=== PATIENT | female | born 1975 | race Caucasian/White ===

== ENCOUNTER 2020-08-12 13:17 | Emergency (ER) | payer OTHER, SELFPAY ==
--- NOTE | 2020-08-12 13:35 | ED.SKABFB ---
HPI - Skin/Abscess/Foreign Bdy General Chief complaint: Extremity Problem,Nontraumatic Stated complaint: Infected Toe Time Seen by Provider: 08/12/20 13:36 Source: patient and RN notes reviewed History of Present Illness HPI narrative: Patient is a 45-year-old female who presents the urgent care with complaints of a right infected toe. Patient states that she gave herself an at home pedicure on Friday evening and on it was very red and swollen. 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 Patient states that she has been using ibuprofen, peroxide and Neosporin. Denies of any fevers, chills, nausea, vomiting. No other acute complaints. No acute distress noted. Patient aware of the plan of care. Some parts of this dictation were generated by voice recognition software and may contain typographical and/or grammatical inaccuracies. Related Data Home Medications Medication Instructions Recorded Confirmed atorvastatin 20 mg PO DAILY 08/12/20 08/12/20 citalopram 40 mg PO DAILY 08/12/20 08/12/20 dextroamphetamine-amphetamine 30 mg PO DAILY 08/12/20 08/12/20 omeprazole 40 mg PO DAILY 08/12/20 08/12/20 sumatriptan succinate 100 mg PO .PRN 08/12/20 08/12/20 Allergies Allergy/AdvReac Type Severity Reaction Status Date / Time codeine Allergy Unknown Nausea Verified 08/12/20 13:34 Review of Systems Review of Systems: Narrative: CONSTITUTIONAL: Denies fever, chills, or sweats. EYES: Denies visual changes, redness, or discharge. ENT: Denies rhinorrhea, congestion, sore throat, or otalgia. CARDIOVASCULAR: Denies chest pain, palpitations, or edema. RESPIRATORY: Denies cough or dyspnea. GASTROINTESTINAL: Denies abdominal pain, nausea, vomiting, or diarrhea. GENITOURINARY: Denies dysuria or hematuria. SKIN: Reports of a red infected painful toe MUSCULOSKELETAL: Denies back pain, joint pain, or myalgia. NEUROLOGIC: Denies headache, numbness, or weakness. All other systems reviewed are negative, except as documented in HPI. [facility] Family History Family History (Updated 02/14/12 @ 11:11 by DOCTOR UNKNOWN) Other Cerebrovascular accident Diabetes mellitus Family history of alcoholism Family history of arthritis Family history of cardiovascular disease Hypertension Social History Social History Alcohol intake: current Comments At the time of my signature, I reviewed and agree with the nursing past medical, surgical, social, and family history. There is no relevant family history pertinent to the patient complaint. Exam Narrative: Exam Narrative: GENERAL: This is a well-nourished, well-developed patient, in no apparent distress. HEAD: normocephalic, atraumatic. EYES: PERRL. Sclera clear/white. Vision is grossly intact. EARS: External ears normal NOSE: External nose normal with no obvious nasal discharge, nares without redness, no rhinorrhea. THROAT: Mucous membranes moist NECK: Neck supple SKIN: Notable paronychia to the medial aspect of the right great toe with surrounding erythema and edema to the entire right great toe just distal of the nailbed. Paronychia is currently draining. NEURO: awake, alert, and oriented to person, place and time. There were no obvious focal neurologic abnormalities. EXTREMITIES: Positive strong right pedal pulse with capillary refill less than 2 seconds. Course Vital Signs Vital signs: Vital Signs Temperature 98.7 F 08/12/20 13:43 Pulse Rate 90 08/12/20 13:43 Respiratory Rate 16 08/12/20 13:43 Blood Pressure 150/70 H 08/12/20 13:43 Pulse Oximetry 100 08/12/20 13:43 Temperature 98.7 F 08/12/20 13:43 Pulse Rate 90 08/12/20 13:43 Respiratory Rate 16 08/12/20 13:43 Blood Pressure 150/70 H 08/12/20 13:43 Pulse Oximetry 100 08/12/20 13:43 Reviewed-patient is informed that they may have pre-hypertension or hypertension based on a blood pressure reading in the department. I recommend the p
[2020-08-12 13:43] VITALS: BP 150/70; PULSE 90; RESP 16; TEMP 37.1; O2SAT 100
== END 2020-08-12 13:59 | disposition home or self-care (01) ==
PROVIDERS: Emergency Provider Nurse Practitioner Family; PCP Internal Medicine
DX: L03.031 Cellulitis of right toe (principal); K21.9 Gastro-esophageal reflux disease without esophagitis; F90.9 Attention-deficit hyperactivity disorder, unspecified type; F41.9 Anxiety disorder, unspecified; F32.9 Major depressive disorder, single episode, unspecified
CPT/HCPCS: 99213; G0463

== ENCOUNTER 2021-01-27 11:17 | Emergency (ER) | payer OTHER, SELFPAY ==
[2021-01-27 11:26] VITALS: BP 129/86; PULSE 80; RESP 16; TEMP 36.1; O2SAT 100
--- NOTE | 2021-01-27 11:53 | ED.DENTAL ---
HPI - Dental/Oral General Chief complaint: Dental/Oral Stated complaint: Tooth Pain Time Seen by Provider: 01/27/21 11:40 Source: patient and RN notes reviewed Mode of arrival: ambulatory Limitations: no limitations History of Present Illness HPI Narrative: Patient presents today complaining of bilateral lower wisdom tooth pain since last night. States she has large cavities or fractures in both of the teeth. She has an appointment in 2 days for the dentist at 4 PM. Currently rates her pain 10/10 and has been using toothache mouthwash as well as ibuprofen. The ibuprofen has been providing some mild relief. MD Complaint: tooth pain Related Data Home Medications Medication Instructions Recorded Confirmed atorvastatin 20 mg PO DAILY 08/12/20 01/27/21 citalopram 40 mg PO DAILY 08/12/20 01/27/21 dextroamphetamine-amphetamine 30 mg PO DAILY 08/12/20 01/27/21 omeprazole 40 mg PO DAILY 08/12/20 01/27/21 sumatriptan succinate 100 mg PO .PRN 08/12/20 01/27/21 Allergies Allergy/AdvReac Type Severity Reaction Status Date / Time codeine Allergy Unknown Nausea Verified 01/27/21 11:31 Review of Systems Review of Systems: CONSTITUTIONAL: Denies body aches, fever, chills, or sweats. EYES: Denies visual changes, redness, or discharge. ENT: Denies rhinorrhea, congestion, sore throat, or otalgia.+ Tooth pain CARDIOVASCULAR: Denies chest pain, palpitations, or edema. RESPIRATORY: Denies cough or dyspnea. GASTROINTESTINAL: Denies abdominal pain, nausea, vomiting, or diarrhea. GENITOURINARY: Denies dysuria or hematuria. SKIN: Denies rash, itching, or wounds. MUSCULOSKELETAL: Denies back pain, joint pain, or myalgia. NEUROLOGIC: Denies headache, numbness, tingling, or weakness. PSYCH: Denies depression or anxiety. [facility] Family History Family History Other Cerebrovascular accident Diabetes mellitus Family history of alcoholism Family history of arthritis Family history of cardiovascular disease Hypertension Social History Social History Alcohol intake: current Comments At time of signature, I have reviewed and agree with nursing past medical, surgical, social and family history unless otherwise noted. Please see nursing chart for further information. There is no relevant family history pertinent to the presenting complaint Exam Narrative: GENERAL: Well-appearing, well-nourished, and in no acute distress. HEAD: Normocephalic, atraumatic. EYES: EOMI. No redness or drainage. Conjunctivae normal. ENT: Mucous membranes pink and moist. Tooth #32 has a large cavity in the anterior half. Tooth #17 has lateral portion missing. No facial swelling noted. NECK: Normal AROM. CHEST: No respiratory distress. EXTREMITIES: Normal range of motion. No edema. SKIN: Warm, dry, no rash. Capillary refill normal. Normal skin turgor. NEURO: No focal deficits. Alert and oriented x3. Gait steady. PSYCH: Normal affect. No signs of depression or anxiety. Course Vital Signs Vital signs: Vital Signs Temperature 97.0 F L 01/27/21 11:26 Pulse Rate 80 01/27/21 11:26 Respiratory Rate 16 01/27/21 11:26 Blood Pressure 129/86 01/27/21 11:26 Pulse Oximetry 100 01/27/21 11:26 Temperature 97.0 F L 01/27/21 11:26 Pulse Rate 80 01/27/21 11:26 Respiratory Rate 16 01/27/21 11:26 Blood Pressure 129/86 01/27/21 11:26 Pulse Oximetry 100 01/27/21 11:26 Reviewed. Pt has been instructed to follow up with her PCP regarding her elevated blood pressure today. MDM - Dental/Oral Differential Diagnosis Differential diagnosis: Likely gingival abscess, dental caries, toothache, dental abscess and fracture of tooth Critical Care Time Critical Care Time Critical Care Time: No Discharge Plan Discharge Clinical Impression: Infected dental caries Patient Disposition: Home, Self-Care Conditio
== END 2021-01-27 12:03 | disposition home or self-care (01) ==
PROVIDERS: Emergency Provider Nurse Practitioner; PCP Internal Medicine
DX: K02.9 Dental caries, unspecified (principal); E78.00 Pure hypercholesterolemia, unspecified; K21.9 Gastro-esophageal reflux disease without esophagitis; F41.9 Anxiety disorder, unspecified; F90.9 Attention-deficit hyperactivity disorder, unspecified type
CPT/HCPCS: 99213; G0463

== ENCOUNTER 2021-12-21 19:18 | Emergency (ER) | payer OTHER, SELFPAY ==
--- NOTE | 2021-12-21 19:23 | ED.URI ---
HPI - URI/Sore Throat General Chief Complaint: Upper Respiratory Infection Stated Complaint: Cough,Bilateral Ear Irritation,Congestion,Fatigue Time Seen by Provider: 12/21/21 19:30 History of Present Illness HPI Narrative: Snow Hardin is a 46 yo female with a PMH of ADD, depression, high cholesterol, GERD,migraines, who comes to express care with c/o cough, fatigue, ear irritation and congestion. Started on Friday and has tried NyQuil and TheraFlu and says neither of them help she is currently has been having some uncontrolled diarrhea which she has not take any medication for, coughing has just started today. Had COVID last December and was under the impression she could not get it again Related Data Home Medications Medication Instructions Recorded Confirmed atorvastatin 20 mg tablet 20 mg PO DAILY 08/12/20 12/21/21 citalopram 40 mg tablet 40 mg PO DAILY 08/12/20 12/21/21 dextroamphetamine-amphetamine ER 30 mg PO DAILY 08/12/20 12/21/21 30 mg 24hr capsule,extend release omeprazole 40 mg capsule,delayed 40 mg PO DAILY 08/12/20 12/21/21 release sumatriptan succinate 100 mg tablet 100 mg PO PRN PRN Migraine Headache 08/12/20 12/21/21 ibuprofen 800 mg tablet 800 mg PO TID 12/21/21 12/21/21 levothyroxine 75 mcg tablet 1 tablet PO DAILY 12/21/21 12/21/21 Allergies Allergy/AdvReac Type Severity Reaction Status Date / Time codeine AdvReac Intermediate Nausea and Verified 12/21/21 19:23 Vomiting Review of Systems Review of Systems: CONSTITUTIONAL: Denies fever, chills, sweats. Fatigue EYES: Denies visual changes, redness, discharge. ENT: Denies rhinorrhea, has congestion, sore throat, bilateral ear irritation CARDIOVASCULAR: Denies chest pain, palpitations, edema. RESPIRATORY: Denies dyspnea, wheezing, cough GASTROINTESTINAL: Denies abdominal pain, nausea, vomiting, has intermittent diarrhea. GENITOURINARY: Denies dysuria, hematuria, abnormal discharge SKIN: Denies rash or itching. NEUROLOGIC: Denies numbness, or focal weakness. PSYCHIATRIC: Denies anxiety or depression. [facility] Family History Family History Other Cerebrovascular accident Diabetes mellitus Family history of alcoholism Family history of arthritis Family history of cardiovascular disease Hypertension Social History Social History Alcohol intake: current Comments At time of signature, I agree with nursing past medical, surgical, social and family history. There is no relevant family history pertinent to the presenting complaint. Exam Narrative: GENERAL: This is a well-nourished, well-developed patient, in mild distress. HEAD: normocephalic, atraumatic. EYES: Sclera clear/white. Vision is grossly intact. EARS: External ears normal, auditory canals mild erythema and without drainage, fluid behind TMs. Hearing grossly intact. NOSE: External nose normal without has nasal discharge, nares without redness, has rhinorrhea. THROAT: Mucous membranes moist, posterior pharynx erythema with no exudate NECK: Neck supple, non-tender CARDIOVASCULAR: Regular rate and rhythm without murmurs, gallops, or rubs. RESPIRATORY: Clear to auscultation. Breath sounds equal bilaterally. No wheezes, rales, or rhonchi. GASTROINTESTINAL: Not done SKIN: warm, intact with no suspicious lesions or rash, good texture and turgor. NEURO: awake, alert, and oriented to person, place and time. There were no obvious focal neurologic abnormalities. Steady gait EXTREMITIES: Normal range of motion. BACK: Nontender without deformity Course Course Emergency Course: Patient here with fatigue congestion cough COVID- negative Strep-negative test Flu- refused Use Imodium for diarrhea, Zyrtec every morning to help with sinus drainage, Mucinex, Tessalon, Prednisone x 5 days Level of Care: Express Care Visit Vital Signs Vital signs: Vital Signs Temperature 9
[2021-12-21 19:27] VITALS: BP 120/73; PULSE 95; RESP 20; TEMP 36.6; O2SAT 100
== END 2021-12-21 20:12 | disposition home or self-care (01) ==
PROVIDERS: Emergency Provider Nurse Practitioner; PCP Internal Medicine
DX: J06.9 Acute upper respiratory infection, unspecified (principal); Z20.822 Contact with and (suspected) exposure to COVID-19; F98.8 Other specified behavioral and emotional disorders with onset usually occurring in childhood and adolescence; F32.A Depression, unspecified; E78.00 Pure hypercholesterolemia, unspecified; K21.9 Gastro-esophageal reflux disease without esophagitis
CPT/HCPCS: 87081; 87426; 87880; 99213; C9803; G0463

== ENCOUNTER 2023-03-19 09:28 | Emergency (ER) | payer OTHER, SELFPAY ==
[2023-03-19 09:38] VITALS: BP 120/65; PULSE 85; RESP 16; TEMP 36.2; O2SAT 99
--- NOTE | 2023-03-19 10:02 | ED.LOWEXIN ---
HPI - Extremity Injury (Lower) General Chief Complaint: Extremity Injury, Lower Stated Complaint: Left Foot Toe Pain Time Seen by Provider: 03/19/23 10:02 Source: patient Mode of arrival: ambulatory Limitations: no limitations History of Present Illness HPI Narrative: 48-year-old female presents with complaint pain, redness and swelling to left great toe for 2-3 days. Patient states that symptoms started 1 day after trimming toenails and becoming progressively worse. Reports history of similar infection after trimming her toenails. Patient is not diabetic. All systems reviewed and negative except as noted above. Related Data Home Medications Medication Instructions Recorded Confirmed atorvastatin 20 mg tablet 20 mg PO DAILY 08/12/20 12/21/21 citalopram 40 mg tablet 40 mg PO DAILY 08/12/20 12/21/21 omeprazole 40 mg capsule,delayed 40 mg PO DAILY 08/12/20 12/21/21 release sumatriptan succinate 100 mg tablet 100 mg PO PRN PRN Migraine Headache 08/12/20 12/21/21 ibuprofen 800 mg tablet 800 mg PO TID 12/21/21 12/21/21 levothyroxine 75 mcg tablet 1 tablet PO DAILY 12/21/21 12/21/21 phentermine 37.5 mg tablet mg 03/19/23 Allergies Allergy/AdvReac Type Severity Reaction Status Date / Time codeine AdvReac Intermediate Nausea and Verified 03/19/23 10:08 Vomiting Review of Systems Review of Systems: CONSTITUTIONAL: Denies fever, chills, or sweats. EYES: Denies visual changes, redness, or discharge. ENT: Denies rhinorrhea, congestion, sore throat, or otalgia. CARDIOVASCULAR: Denies chest pain, palpitations, or edema. RESPIRATORY: Denies cough or dyspnea. GASTROINTESTINAL: Denies abdominal pain, nausea, vomiting, or diarrhea. GENITOURINARY: Denies dysuria or hematuria. SKIN: Denies rash or itching. Reports redness, swelling drainage from left great toe. MUSCULOSKELETAL: Denies back pain, joint pain, or myalgia. NEUROLOGIC: Denies headache, numbness, or weakness. PSYCHIATRIC: Denies anxiety or depression. All other systems reviewed are negative, except as documented in HPI. [facility] Family History Family History Other Cerebrovascular accident Diabetes mellitus Family history of alcoholism Family history of arthritis Family history of cardiovascular disease Hypertension Social History Social History Alcohol intake: current Comments At time of signature, agree with nursing past medical, surgical, social and family history. There is no relevant family history pertinent to the presenting complaint. Exam Narrative: GENERAL: This is a well-nourished, well-developed patient, in no apparent distress. HEAD: normocephalic, atraumatic. EYES: PERRL. Sclera clear/white. Vision is grossly intact. EARS: External ears normal NOSE: External nose normal NECK: Neck supple, non-tender without lymphadenopathy, masses or thyromegaly. CARDIOVASCULAR: Regular rate and rhythm without murmurs, gallops, or rubs. RESPIRATORY: Clear to auscultation. Breath sounds equal bilaterally. No wheezes, rales, or rhonchi. SKIN: warm, Dry, intact with no suspicious lesions or rash, good texture and turgor. erythema and swelling to lateral aspect L cuticle extending into L great toe. tender on palpation. purulent drainage. NEURO: awake, alert, and oriented to person, place and time. There were no obvious focal neurologic abnormalities. EXTREMITIES: No joint tenderness, effusion, or edema noted. Course Course Level of Care: Express Care Visit Vital Signs Vital signs: Vital Signs Temperature 36.2 C L 03/19/23 09:38 Pulse Rate 85 03/19/23 09:38 Respiratory Rate 16 03/19/23 09:38 Blood Pressure 120/65 03/19/23 09:38 Pulse Oximetry 99 03/19/23 09:38 Oxygen Delivery Room Air 03/19/23 09:38 Temperature 36.2 C L 03/19/23 09:38 Pulse Rate 85 03/19/23 09:38 Respiratory Rate 16
== END 2023-03-19 10:16 | disposition home or self-care (01) ==
PROVIDERS: Emergency Provider Nurse Practitioner Family; PCP Nurse Practitioner Family
DX: L03.116 Cellulitis of left lower limb (principal); Z79.899 Other long term (current) drug therapy
CPT/HCPCS: 99213; G0463

== ENCOUNTER 2024-07-10 15:35 | Emergency (ER) | payer SELFPAY ==
--- NOTE | 2024-07-10 15:45 | ED_ITS ---
HPI - URI/Sore Throat General Chief Complaint: Upper Respiratory Infection Stated Complaint: cold symptoms Time Seen by Provider: 07/10/24 15:35 Source: patient Mode of arrival: ambulatory Limitations: no limitations History of Present Illness HPI Narrative: Patient is a 49-year-old female presents with 2 days of runny nose, congestion, sore throat, cough, shortness of breath on exertion, body aches. Patient has taken DayQuil and Tylenol. Denies fever, chills, nausea vomiting, diarrhea. Related Data Home Medications ?Medication ?Instructions ?Recorded ?Confirmed ?Last Taken ?Type atorvastatin 20 mg tablet 20 mg PO DAILY 08/12/20 12/21/21 Unknown History citalopram 40 mg tablet 40 mg PO DAILY 08/12/20 12/21/21 Unknown History omeprazole 40 mg capsule,delayed 40 mg PO DAILY 08/12/20 12/21/21 Unknown History release sumatriptan succinate 100 mg tablet 100 mg PO PRN PRN Migraine Headache 08/12/20 12/21/21 Unknown History ibuprofen 800 mg tablet 800 mg PO TID 12/21/21 12/21/21 Unknown History levothyroxine 75 mcg tablet 1 tablet PO DAILY 12/21/21 12/21/21 Unknown History phentermine 37.5 mg tablet mg 03/19/23 Unknown History aripiprazole 2 mg tablet mg 07/10/24 Unknown History Allergies Allergy/AdvReac Type Severity Reaction Status Date / Time codeine AdvReac Intermediate Nausea and Verified 07/10/24 15:53 Vomiting Review of Systems Review of Systems: All systems reviewed & are unremarkable except as noted in HPI and below Constitutional: Constitutional: Reports body ache(s), Denies chills, Denies fatigue, Denies fever(s), Denies headache(s), Denies malaise and Denies weakness Eyes: Eyes: Denies blurry vision, Denies itchy eyes and Denies loss of vision ENT: Denies otalgia, Denies headache(s), Reports nasal congestion, Reports nasal discharge, Denies sinus pain and Reports sore throat Cardiovascular: Cardiovascular: Denies chest pain, Denies irregular heart rhythm and Denies dyspnea Respiratory: Respiratory: Reports cough and Reports dyspnea on exertion Gastrointestinal: Gastrointestinal: Denies abdominal pain, Denies diarrhea, Denies nausea and Denies vomiting Musculoskeletal: Musculoskeletal: Denies back pain, Denies myalgias and Denies arthralgias Integumentary/Breasts: Skin/Breast: Denies pruritus and Denies rash Neurologic: Denies headache(s), Denies loss of vision and Denies weakness Psychiatric: Psychiatric: Reports no additional psychiatric complaints Endocrine: Endocrine: Denies fatigue Allergic/Immunologic: Allergic/Immunologic: Denies itchy eyes PMFSH Family History Family History Other Cerebrovascular accident Diabetes mellitus Family history of alcoholism Family history of arthritis Family history of cardiovascular disease Hypertension Social History Social History Alcohol intake: current Comments At time of signature, agree with nursing past medical, surgical, social and family history. There is no relevant family history pertinent to the presenting complaint. Exam Const: General: cooperative, healthy appearing, comfortable, no acute distress and well nourished Nutritional Appearance: well nourished Orientation/consciousness: patient oriented x3 Limitations: no limitations HENMT: Head: normal to inspection, normocephalic and atraumatic Ears: hearing grossly normal bilaterally, external ears normal, TM's normal bilaterally, EAC's normal and no periauricular adenopathy Face/Nose/Sinus: N ormal external nose present, Abnormal mucous membranes and turbinates present erythematous bilateral and diffuse, normal facial exam, sinuses nontender and face symmetric Face and sinus: normal facial exam, sinuses nontender and face symmetric Mouth: Yes Normal oral and palatal mucosa present, Yes lip normal, Yes tongue normal, Yes Normal salivary glands and ducts present, Yes oropharynx normal and Yes moist mucous membranes Teeth and gingiva: dentition normal Throat: posterior oropharynx normal, tonsils normal and uvula midline Eyes: General: appearance normal, both eyes and all related structures Alignment and Position: alignment normal and position normal Periorbital: periorbital findings normal Eyelids: eyelids normal Pupils: Equal, round and reactive pupils present Neck: Neck: normal visual inspection, full ROM, no lymphadenopathy and supple Chest: Chest palpation & inspection: normal inspection of the chest and normal palpation of entire chest wall Resp: Effort & Inspection: normal respiratory effort and able to speak in complete sentences Auscultation: clear to auscultation bilaterally, no crackles, no rales, no rhonchi and no wheezes Cardio: Rate: tachycardic Rhythm: regular rhythm Heart sounds: S1 normal heart sound present and S2 normal heart sound present GI: Inspection: normal to inspection Skin: General skin exam: normal color and no rashes or lesions noted Neuro: General: patient oriented x3 and moves all extremities Cranial nerves: Yes Equal, round and reactive pupils present Speech: normal speech Gait exam (Neuro): Normal gait present Extrem: General: normal to inspection, full ROM and no edema Psych: Appearance: grossly normal and well kempt Mental Status: mental status grossly normal Speech and movement: Normal speech and movement present Affect: normal affect Attitude: cooperative Thought process: Normal thought process present Course Course Emergency Course: Discharge instructions reviewed with patient, as well as provided in writing per nursing staff. The instructions also include specific and strict return/GO TO THE ER as well as f/u information. All questions have been answered, and the patient deny any further questions with discharge and discharge plan. Portions of this record may have been created with voice recognition software Level of Care: Express Care Visit Vital Signs Vital signs: Vital Signs Temperature 37.4 C 07/10/24 15:46 Pulse Rate 105 H 07/10/24 15:46 Respiratory Rate 18 07/10/24 15:46 Blood Pressure 148/73 H 07/10/24 15:46 Pulse Oximetry 98 07/10/24 15:46 Oxygen Delivery Room Air 07/10/24 15:46 Temperature 37.4 C 07/10/24 15:46 Pulse Rate 105 H 07/10/24 15:46 Respiratory Rate 18 07/10/24 15:46 Blood Pressure 148/73 H 07/10/24 15:46 Pulse Oximetry 98 07/10/24 15:46 Oxygen Delivery Room Air 07/10/24 15:46 Reviewed MDM - URI/Sore Throat MDM Narrative Medical decision making narrative: Pt well hydrated appearing, in no respiratory distress, hemodynamically stable. Recommend supportive care. The patient is stable at time of discharge the clinical impression was discussed and the patient was given the opportunity to ask questions, which were addressed as completely as possible given the information available at present. Anticipatory guidance and return to care precautions were discussed and the importance of primary care follow-up was stressed and encouraged. The patient voiced understanding of the plan, indications to return, and the need for follow-up. Differential diagnosis considered: Mac virus, strep pharyngitis, allergic rhinitis, upper respiratory tract infection, sinusitis, rhinosinusitis, nasopharyngitis. viral pharyngitis, otitis media, otitis externa, otitis effusion, foreign body, cerumen impaction, viral syndrome, and influenza.? Exam findings show no acute concerns or changes; patient is non-toxic appearing and is in no distress.? Patient is appropriate for outpatient treatment and follow- up.? Medical Records Attestation: I reviewed the patient's medical records. Lab Data Attestation: I reviewed the patient's lab results. Labs: Lab Results 07/10/24 07/10/24 Range/Units 16:11 16:19 POC Influenza A Ag Positive (Negative) POC Influenza B Ag Negative (Negative) POC SARS CoV-2 Ag Negative (Negative) POC Grp A Strep Screen Negative (Negative) Discharge Plan Discharge Clinical Impression: Influenza Patient Disposition: Home, Self-Care Condition: Stable Instructions: Influenza (ED) Additional Instructions: You are positive for influenza A. Use Tessalon Perles as needed for cough For pain, you may take: Tylenol 650-1000mg by mouth every 4-6 hours. Do not exceed 4000mg in 24 hours. Advil (Ibuprofen) 600 mg by mouth every 6 hours. Do not exceed 2400mg in 24 hours. 8 AM: Tylenol 11 AM: Ibuprofen 2 PM: Tylenol 5 PM: Ibuprofen 8 PM: Tylenol 11 PM: Ibuprofen 2 AM: Tylenol 5 AM: Ibuprofen Your rapid strep swab was negative today at [facility]. A throat culture will be sent to the laboratory for further testing. If the test is positive, you will receive a phone call within 48 hours and an appropriate antibiotic will be initiated at that time. Your Covid was negative Your symptoms are likely due to a viral illness, which is not treated with antibiotics. Viral symptoms can be present for up to a few weeks. -Alternate Tylenol and Motrin per package directions for fever or pain. -Antihistamine medication such as Benadryl/Zyrtec at night and Claritin/Renea during the day can help improve symptoms. -Use Flonase twice a day for 5 days then daily to help reduce the inflammation and dry up your sinuses. -You can also use Sudafed behind the pharmacy counter(12 or 24 hour). Be sure to drink plenty of water with these medications at least 8 ounces with every dose and it is important to drink 8 to 10 glasses of water per day. Water is a natural decongestant -Eat and drink things that are easy to swallow, like tea or soup, or popsicles. -Oral rinses such as: Salt water gargles and/or may use topical anesthetic (eg. Chloraseptic spray) or lozenges to relieve dryness or throat pain). -Frequent hand washing or hand cementer machine is one of the best ways to prevent spread of infection. -Using a vaporizer or humidifier at night will also help thin secretions and help with coughing up phlegm. -Follow up with primary care provider in 3-5 days if condition is not improving - For new or worsening symptoms go directly to the nearest ER Patient Language: Nepali Prescriptions: New benzonatate 100 mg capsule 100 mg PO BID PRN (Reason: cough) Qty: 14 0RF No Action levothyroxine 75 mcg tablet 1 tablet PO DAILY ibuprofen 800 mg tablet 800 mg PO TID aripiprazole 2 mg tablet atorvastatin 20 mg tablet 20 mg PO DAILY citalopram 40 mg tablet 40 mg PO DAILY sumatriptan succinate 100 mg tablet 100 mg PO PRN PRN (Reason: Migraine Headache) omeprazole 40 mg capsule,delayed release(DR/EC) 40 mg PO DAILY phentermine 37.5 mg tablet Follow-up/Referrals: JAQUELINE,YASSINE NO [Primary Care Provider] - 3 Days Stand Alone Forms: Work/School Release IP Time of Disposition: 16:37
[2024-07-10 15:46] VITALS: BP 148/73; PULSE 105; RESP 18; TEMP 37.4; O2SAT 98
[2024-07-10 16:13] LABS: EDSTREPNEGPOS1 Negative (Negative)
[2024-07-10 16:21] LABS: EDCOVIDSCREEN Negative (Negative); EDINFLUASCREEN Positive (Negative); EDINFLUBSCREEN Negative (Negative)
--- OUTSIDE RECORDS SUMMARY | 2024-07-15 09:07 | XMS_ITS | Clinical Summary ---
Author Organization [facility] Address [id number] [place] [address] [place] [address] Care Team Providers Care Solid Waste Facility Supervisor Name Role Phone Jaguar Ruby MD Unavailable [phone] Oneal Parsons Primary Care Provider [phone] Allergies Active Allergy Reactions Criticality Noted Date Comments Codeine Nausea and Vomiting,Dizziness 2014 Medications Cholecalciferol (VITAMIN D) 125 MCG (5000 UT) CapIndications:Di etary iron deficiency without anemia Take 1 capsule by mouth 2 (two) times a day. 180 capsule 3 04/13/20 21 Active magnesium oxide 250 MG tablet Take 1 tablet (250 mg total) by mouth daily. Active ORTHOTICS, DME,Indications:F oot pain, bilateral Apply 1 Device topically daily. 2 Device 11/10/19 22 Active atorvastatin (LIPITOR) 20 MG tabletIndications :Mixed hyperlipidemia take 1 tablet by mouth nightly at bedtime 30 tablet 1 03/01/20 24 Active levothyroxine (SYNTHROID) 50 MCG tabletIndications :Acquired hypothyroidism take 1 tablet by mouth once daily in the morning 90 tablet 03/19/20 24 Active fish oil (OMEGA-3 FATTY ACID) 1000 MG Cap capsule Take 1 capsule (1,000 mg total) by mouth 2 (two) times daily. Active APPLE CIDER VINEGAR OR Take 3 capsules by mouth daily. Active ARIPiprazole (ABILIFY) 2 MG tabletIndications :Moderate episode of recurrent major depressive disorder (CMS/HCC HHS/HCC) Take 1 tablet (2 mg total) by mouth daily. 90 tablet 10/22/20 24 Active citalopram (CELEXA) 40 MG tabletIndications :Moderate episode of recurrent major depressive disorder (CMS/HCC HHS/HCC) Take 1 tablet (40 mg total) by mouth daily. 90 tablet 3 04/13/20 24 Active SUMAtriptan (IMITREX) 100 MG tabletIndications :Migraine without status migrainosus, not intractable, unspecified migraine type Take 1 tablet (100 mg total) by mouth 2 (two) times daily as needed for Migraine. Take 1 tablet at onset of symptoms, may take 1 tablet 2 hours later. Max of 2 tablets in 24-hour period. 9 tablet 06/07/20 24 Active ibuprofen (MOTRIN) 800 MG tabletIndications :Backache Take 1 tablet by mouth three times daily as needed 30 tablet 06/29/19 25 Active phentermine (ADIPEX-P) 37.5 MG tabletIndications :Class 2 obesity due to excess calories without serious comorbidity with body mass index (BMI) of 36.0 to 36.9 in adult TAKE 1 TABLET BY MOUTH IN THE MORNING BEFORE BREAKFAST 30 tablet 06/29/19 25 Active phentermine (ADIPEX-P) 37.5 MG tabletIndications :Class 2 obesity due to excess calories without serious comorbidity with body mass index (BMI) of 36.0 to 36.9 in adult Take 1 tablet (37.5 mg total) by mouth every morning before breakfast. 30 tablet 04/13/20 24 025 Discontinued ibuprofen (MOTRIN) 800 MG tabletIndications :Backache Take 1 tablet by mouth three times daily as needed 30 tablet 05/28/20 24 025 Discontinued Active Problems Problem Noted Date Diagnosed Date Neuropathy 04/13/2024 Numbness and tingling of left lower extremity Bulging lumbar disc 04/13/2024 Constipation, unspecified constipation type 05/23 Hx of gallstones 06/02/2023 Green stool 06/02/2023 Lower abdominal pain 01/07/2023 Overview (01/07/2023): Added automatically from request for surgery [id number] Family hx of colon cancer 01/07/2023 Overview (01/07/2023): Added automatically from request for surgery [id number] Chronic constipation 10/16/2022 Class 1 obesity due to exces s calories without serious comorbidity with body mass index (BMI) of 32.0 to 32.9 in adult 10/16/2022 Hypothyroidism 06/07/2021 Dietary iron deficiency without anemia COVID-19 vaccination refused 01/09/2021 Mixed hyperlipidemia 03/25/2019 Vitamin D deficiency 03/08/2019 Other cervical disc degenera tion, unspecified cervical region 08/04/2018 Facet arthropathy, cervical 08/04/2018 Foraminal stenosis of cervical region 08/04/2018 Weight gain 11/02/2017 Vitamin B12 deficiency 10/30/2017 Right arm numbness 09/15/2017 Acne 07/30/2017 Depression 11/04/2016 Pain in thumb joint with movement 12/12/2015 Attention deficit disorder without hyperactivity 01/13/2015 Resolved Problems Problem Noted Date Diagnosed Date Resolved Date Screening for colon cancer 04/13/2024 1 Paronychia of great toe of right foot 10/20/2020 01/09/2021 Abscess 10/20/2020 01/09/2021 Tobacco abuse 09/22/2018 01/09/2021 Other muscle spasm 08/04/2018 9 BMI 26.0-26.9,adult 11/02/2017 01/10/20 21 Mollusca contagiosa 10/29/2017 01/10/20 21 Renal calculus, left 04/22/2017 021 Neck pain 12/31/2016 01/09/2021 Muscle spasms of neck 12/26/20162020 Thumb weakness 04/23/2016 02/24/2019 Thumb fracture 12/18/2015 02/24/2019 Encounters Date Type Department Care Team Description 05/13/2024 Telephone [facility] Family & Internal Medicine - [address] [address] Oneal Parsons FNP Medication Request from Last 3 Months Immunizations Name Administration Dates Next Due Hepatitis A (Generic) 04/30/1999 Hepatitis B (Generic: Adult) 05/09/2015 Hepatitis B Pediatric 05/09/2015 Influenza Adult (Generic) 03/23/2013 Tdap (Generic) 05/09/2015,05/09/2015 Family History Medical History Relation Comments Alcohol Abuse Brother Diabetes Cousin Alcohol Abuse Father Heart Disease Father Stroke Father Pancreatic cancer Maternal Grandfather Arthritis Maternal Grandmother Heart Disease Maternal Grandmother Hypertension Maternal Grandmother Stroke Maternal Grandmother Alcohol Abuse Maternal Uncle Aneurysm Mother Depression Mother Thyroid Disease Mother Arthritis Paternal Aunt Diabetes Paternal Aunt Arthritis Paternal Grandfather Colon Cancer Paternal Grandfather Colon Cancer Paternal Grandmother Heart Disease Paternal Grandmother Hypertension Paternal Grandmother Stroke Paternal Grandmother Depression Sister Relation Status Comments Brother Alive Cousin Father Alive Maternal Grandfather Maternal Grandmother Maternal Uncle Alive Mother Alive Paternal Aunt Alive Paternal Grandfather Paternal Grandmother Sister Alive Social History Tobacco Use Types Packs/Day Years Used Date Smoking Tobacco: Former Cigarettes 0.3 15 0 09/19/2005 - 09/19/2020 Passive Smoke Exposure: Past Smokeless Tobacco: Never Tobacco Cessation:Counseling Given: Yes Comments:former cigarette smoker, currently uses vape Alcohol Use Standard Drinks/Week Comments Not Currently 0 (1 standard drink = 0.6 oz pur e alcohol) once every 4 months AUDIT-C Answer Date Recorded Frequency of Alcohol Consumption Monthly or less 09/22/2018 Average Number of Drinks 1 or 2 019 Frequency of Binge Drinking Never 07/2018 PHQ-2 Answer Date Recorded Patient Health Questionnaire-2 Score 6 04/13/2024 Comments No Sex and Gender Information Value Date Recorded Sex Assigned at Female 09/22/2018 3:32 PM CDT Legal Sex Female 8:00 PM CDT Gender Identity Female 09/22/2018 3:32 PM CDT Sexual Orientation Straight 09/22/2018 3: 32 PM CDT Last Filed Vital Signs Vital Sign Reading Time Taken Comments Blood Pressure 135/83 04/13/2024 8:45 AM CDT Pulse 76 04/13/2024 8:45 AM CDT Temperature 36.9 ??C (98.4 ??F) 04/13/2024 8:45 AM CD T Respiratory Rate 16 04/13/2024 8:45 AM CDT Oxygen Saturation 99% 04/13/2024 8:45 AM CDT Inhaled Oxygen Concentration - - Weight 88.1 kg (194 lb 3.2 oz) 04/13/2024 8:45 A M CDT Height 157.5 cm (5' 2 ) 04/13/2024 8:45 AM CDT Body Mass Index 35.52 04/13/2024 8:45 AM CDT Plan of Treatment Health Maintenance Due Date Last Done Comments Colorectal Cancer Screening Colonoscopy (10 Years) 1975 Hepatitis B Vaccines (2 of 3 - 19+ 3-dose series) 06/06/2015 05/09/2015, 05/09/2015 Annual Physical 11/20/2023 11/19/2022 Mammogram Screening 11/27/2024 11/27/2022 COVID-19 Vaccine (1 - 2023-2 5 season) 2025 Postponed from 02/21 (Patient Refused) Influenza Adult (#1) 2025 03/23/2013 Postpon ed from 03/23/2024 (Patient Refused) PHQ-2 (Physician [place]) 04/13/2025 04/13/2024 DTaP, Tdap and Td Vaccines ( 3 - Td or Tdap) 05/09/2025 05/09/2015, 05/09/2015 Cervical Cancer Screening Pa p Smear (Age 30 to 64) Every 3 Years 11/19/2025 11/19/2022, 07/30/2017 Cervical Cancer Screening Pa p with HPV Testing (Age 30 to 64) Every 5 Years 11/20/2027 11/19/2022, 07/30/2017 Cervical Cancer Screening with HPV 11/20/2027 Hepatitis C Completed 11/05/2017, 11/05/2017 Meningococcal B Vaccine Aged Out No l onger eligible based on patient's age to complete this topic Meningococcal Vaccine Aged Out No juanjo ad eligible based on patient's age to complete this topic Pneumococcal Vaccine: Pediatrics (0 to 5 Years) and At-Risk Patients (6 to 64 Years) Aged Out No longer eligible b ased on patient's age to complete this topic RSV Immunizations Under 20 Months Aged Out No longer eligible b ased on patient's age to complete this topic Procedures Procedure Name Priority Date/Time Associated Diagnosis Comments MG SCREENING W ZABRINA ROMAN DIGI Routine 11/27/2022 11:56 AM CDT Encounter for screening mammogram for malignant neoplasm of breast HUMAN PAPILLOMAVIRUS, HIGH-RISK TYPES Routine 11/19/2022 12:00 PM CDT CYTOPATH CERV/VAG THIN LAYER Routine 11/19/2022 7:52 AM CDT HEPATITIS A,B,& C Routine 11/05/2017 7:2 3 AM CDT Other specified behavioral and emotional disorders with onset usually occurring in childhood and adolescence Major depressive disorder, single episode Contact with and (suspected) exposure to infections with a predominantly sexual mode of transmission Deficiency of other specified B group vitamins (CODE) from Last 3 Months or Most Recently Relevant to Health Maintenance Results * MG SCREENING W ZABRINA ROMAN DIGI (11/27/2022 11:56 AM CDT) Anatomical Region Laterality Modality Breast Bilateral Mammography 11/27/2022 1:48 PM CDT Narrative 11/27/2022 1:48 PM CDT EXAMINATION: Digital bilateral screening mammogram with 3-D tomosynthesis EXAM DATE/TIME: 11/27/2022 8:38 AM REASON FOR EXAM: ??screening ? COMPARISON: Baseline study. TECHNIQUE: Digital screening mammography of both breasts was performed in addition to 3-D Tomosynthesis technique. This study was read with the assistance of a computer-aided detection system. TISSUE DENSITY: There are scattered areas of fibroglandular density. FINDINGS: No suspicious masses, malignant appearing calcifications, skin thickening or other abnormalities are present. ?? =====IMPRESSION:===== No mammographic findings suggestive of malignancy ASSESSMENT: ACR BI-RADS 2 - BENIGN FINDING(S) Recommendation: 1: Routine Screening Bilateral COMMENTS: Ordered By: ONEAL PARSONS Interpreted By: Malik Perez MD, 11/27/2022 1:48 PM Oneal Parsons BAKER PIE MAMMO Final Result * HUMAN PAPILLOMAVIRUS, HIGH-RISK TYPES (11/19/2022 12:00 PM CDT) SPEC DESCRIPTION CERVICAL/END OCERVICAL 11/21/2022 8:30 AM CDT [facility] HPV DNA HIGH RISK NEGATIVE NEGATIVE 11/22/2022 1:27 PM CDT [facility] Comment:SEE CYTOLOGY REPORT 11/19/2022 12:0 0 PM CDT Oneal Parsons BAKER PIE PATHOLOGY/CYTOLOGY ORDERABLES Final Result [facility] [address] [place] [address], * Cytopath Cerv/Vag Thin Layer (11/19/2022 7:52 AM CDT) THIN PREP PAP ? [facility] ?[address] ?[place] [address] ? Department of Pathology ? Pathology Report ? CERVICAL/VAGINAL PAP SMEAR REPORT Name: DAGMAR HARDIN ? Age: 8 1975 (Age: 47) ?Location: [facility] Sex: F ?Collected Date: 11/19/2022 [facility] #: [id number] ?Date Received: 11/21/2022 Date Reported: 11/25/2022 Provider: ONEAL PARSONS BAKER PIE-C INTERPRETATION CERVICAL/ENDOCERVI NATE: ? SATISFACTORY FOR EVALUATION. ENDOCERVICAL/TRANS FORMATION ZONE COMPONENT PRESENT. ? NEGATIVE FOR INTRAEPITHELIAL LESION OR MALIGNANCY. NEGATIVE FOR HIGH RISK HPV. The FDA approved Aptima HPV assay is an in vitro nucleic acid amplification test for the qualitative detection of E6/E7 viral messenger RNA (mRNA) from 14 high-risk types of human papillomavirus (HPV) in cervical specimens. ??The high-risk HPV types detected by the assay include: 16,18,31,33,35,39, 45,51,52,56,58,59, 66, and 68. Electronically Signed Out By ANDRA Bennett (ASCP) CLINICAL HISTORY Z11.51 ?? Z12.4 SCREENING HPV AND SCREENING PAP TEST HX LEEP ThinPrep Pap Test with HR HPV testing requested. Date of Last Menstrual Period: ? 11/07/22 Menstrual Status: Regular: HEAVY CYCLE Abnormal Bleeding SPECIMEN SUBMITTED CERVICAL/ENDOCERVI NATE ?Specimen Received:1 Thin Prep Vial, Image Assisted Pap (SMD) ? Please note: The Pap smear is not a diagnostic test. ??It is a screening test. ??Negative results on combined screening (Pap test and HPV-DNA) have a high negative predictive value (99.1-100 percent) for cervical cancer. ??The pap test is not effective in detecting cervical adenocarcinoma. [facility] 11/19/2022 7:52 AM CDT 11/21/2022 7:52 AM CDT Comment:CERVICAL/ENDOCERVICA L Oneal SAEED PATHOLOGY/CYTOLOGY ORDERABLES Final Result [facility] [address] [place] [address], [place] [phone] * HEPATITIS A,B,& C (11/05/2017 7:23 AM CDT) HEPATITIS B SURFACE AG NON-REACTIVE NON-REACT TAMY 11/05/2017 10:35 PM CDT [facility] HEP B CORE TOTAL AB NON-REACTIVE NON-REACT TAMY 11/05/2017 11:05 PM CDT [facility] HEP B SURFACE AB REACTIVE 11/05/2017 10:36 PM CDT [facility] HAV IGM NON-REACTIVE NON-REACT TAMY 11/06/2017 11:40 PM CDT [facility] HEPATITIS C AB NON-REACTIVE NON-REACT TAMY 11/05/2017 11:04 PM CDT [facility] 11/05/2017 7:23 AM CDT us Oneal [facility] Final Result [facility] [address] [place] [address], [place] [phone] from Last 3 Months or Most Recently Relevant to Health Maintenance Care Teams Solid Waste Facility Supervisor Relationship Specialty Start Date End Date Oneal Pasrons FNP [address] [place] [address] PCP - General Nurse Practitioner Family 11/19/22 Jagura Ruby MD [address] [place] [address] 11/05/16
--- OUTSIDE RECORDS SUMMARY | 2024-07-15 09:07 | XMS_ITS | Continuity of Care Document ---
Author Organization [facility] Address [address] [place] [address] Phone Care Team Providers Care Envelope Patternmaker Name Role Phone Brittany Amador DO Unavailable Allergies, Adverse Reactions, Alerts Substance Reaction Status Criticality codeine Active No Information Medications Medication Instructions Dosage Effective Dates (start - stop) Status Comments omeprazole 20 mg tablet,delayed release take 1 by Oral route every day 1 - Active 30 minute before meals prochlorperazine maleate 10 mg tablet take 1 tablet by oral route 3 times every day as needed - Active famotidine 20 mg tablet take 1 by Oral route every bedtime 1 - Active Results Test Name Date and Time Measure Units Reference Range Abnormal Flag Status Comments Panel Description: SED RATE BY MODIFIED RAINEERGAlverto EN Final SED RATE BY MAURIZIO BAUTISTA 13 07:11:00 1 mm/h < OR = 20 N Final Test performed at [facility] [id number] [place] [address]Igrbb tor: NAOMIE WHITEHEAD DO,MPH Panel Description: T4, FREE Final T4, FREE 13 07:11:00 1.0 ng/dL 0.8-1.8 N Final Test performed at [facility] [id number] [facility] [place] [address]Gwukl tor: NAOMIE WHITEHEAD DO,MPH Panel Description: TSH Final TSH 13 07:11:00 2.08 mIU/L N Final Reference Rang e > or = 20 Years 0.40-4.50 Ranges First trimester 0.26-2.66 Second trimester 0.55-2.73 Third trimester 0.43-2.91Test performed at [facility] [id number] [place] [address]Oopxj tor: NAOMIE WHITEHEAD DO,MPH Panel Description: HCG, TOTAL, QL Final HCG, TOTAL, QL 13 07:11:00 NEGATIVE N Final Reference RangeNon-Pregna nt: NegativePregnan t: Positive Test performed at [facility] [id number] [place] [address]Xtaaf tor: NAOMIE WHITEHEAD DO,MPH Advance Directives Directive Yes / No Effective Date File Name Resuscitation Not Answered N/A N/A Life Support Not Answered N/A N/A Intubation Not Answered N/A N/A Antibiotics Not Answered N/A N/A IV Fluid Support Not Answered N/A N/A Tube Feed Not Answered N/A N/A Other Directive N/A N/A WARNING:The information contained in this section is historical and is provided for information only and does not constitute a legal document or any assurance that the information is still accurate. Please verify the information with the ambrosio of the legal document before using it for clinical purposes. Encounters Encounter Description Practice Location Reason(s) For Visit Diagnoses Date Provider Providers Copied on Encounter [facility], [id number], [place], [place], [id number], tel:[phone] [facility] new patient (chief complaint) Nausea Marjorie Soto. [address] [place] [address], [id number], [place]. tel:[phone] Referring Provider: Brittany Marie, [address] [place] [address], [address]. tel:[phone] Family History Family Member Type Diagnosis Age At Onset Mother Problem (finding) Alive and well Paternal grandfather Problem (finding) Family history unknown Paternal grandmother Problem (finding) Unknown Father Problem (finding) stroke Maternal grandfather Problem (finding) Family history unknown Father Problem (finding) alcoholism Maternal grandmother Problem (finding) Unknown Brother Problem (finding) alcoholism Sister Problem (finding) depression Immunizations Vaccine Date Status Comments flu (split) (3 yrs or older) administered Source: Other Provider Payers Payer name Insurance type Covered republican ID Gretchen saenz(s) [place] [employer] CI [id number] Social History Type Description Quantity Date Captured Comments Alcohol Use Details beer & wine Caffeine Use Details No Tobacco Use Status Smoking Status Current some day smoker Smoking Tobacco Use Details Cigarette: No Details Available Cigarette: No Details Available Sex Female Vital Signs Date / Time: Height Weight BMI Pulse Rate Blood Pressure Temperature Respiratory Rate Body Surface Area Head Circumference Head Circ. Percentile Wt./Sumanth. Percentile BMI percentile Pulse Ox Inhaled Ox 10:44 AM 61.50 in 57.153 kg (126.00 lbs) 23.4 2 kg/m eter (2) 75 /min 100/80 mm[Hg] 97.80 F 100 % 100 % Chief Complaint And Reason For Visit From encounter dated '05/06/2013 10:40'. new patient (chief complaint) Reason For Referral Reason For Referral No Information History Of Present Illness Encounter Date Complaint History Of Prese nt Illness new patient new patient (comments) Pt is her e as a new patient/er follow up. she has IPA but has never bothered to find a PCP. she is here for her one follow up. She went tot he ER with belly pain, belching, dizziness and feeling she was going to pass out. she states this has been going on since November 2012. she states it has been getting progressively worse. she feels nauseous and not hungry. she feels she is overproducing saliva. her diet is healthy. 2 weeks ago she started taking a dietary supplement that had alot of caffeine. she states she feels no worse since starting the dietary supplement. she states that she has lost weight in the past few weeks but that was intentional because she is taking the diet supplement. she is under alot of stress because her son has severe OCD and ADD. she drives him to see a therapist in [place] every week. she feels overwhelmed. in the er she had labs, ct scan, ua, ultrasound and they were all normal. urine test and thyroid were not evaluated. she has been on a H2 sunshine in Functional Status Date Functional Assessmen t No Information Instructions Date Instruction Additional Infor savanah Disease process Assessments Type Assessment Date No Information Mental Status Date Cognitive Assessment Orientation - [place] ed to time, place, person, situation. Patient Care Teams Name Effective Dates (start - stop) Status Members No Information
--- OUTSIDE RECORDS SUMMARY | 2024-07-15 09:07 | XMS_ITS | Encounter Summary ---
Author Organization [facility] Address [address] [place] [address]. [place] [address] [place] [address] Care Team Providers Care Film Booker Name Role Phone Jaguar Ruby MD Primary Care Provider [phone] Jaguar Ruby MD Unavailable [phone] Jeny Gonzalez Primary Care Provider [phone] Encounter Details Date Type Department Care Team (Late st Contact Info) Description 02/21/2022 alooma Message Enc [facility] Orthopedic & Sports Medicine - [place] [id number] [place], [facility] Provider MRI results Social History Tobacco Use Types Packs/Day Years Used Date Smoking Tobacco: Former Cigarettes 0.3 15 0 09/19/2005 - 09/19/2020 Smokeless Tobacco: Never Comments:former cigarette sm oker, currently uses vape Alcohol Use Standard Drinks/Week Comments Not Currently 0 (1 standard drink = 0.6 oz pur e alcohol) once every 4 months AUDIT-C Answer Date Recorded Frequency of Alcohol Consumption Monthly or less 09/22/2018 Average Number of Drinks 1 or 2 019 Frequency of Binge Drinking Never 07/2018 PHQ-2 Answer Date Recorded PHQ-2 Score - If the patient scores above 3, please move on to questions 3-9 0 12/27/2021 Comments No Sex and Gender Information Value Date Recorded Sex Assigned at Female 09/22/2018 3:32 PM CDT Legal Sex Female 8:00 PM CDT Gender Identity Female 09/22/2018 3:32 PM CDT Sexual Orientation Straight 09/22/2018 3: 32 PM CDT documented as of this encounter Plan of Treatment Not on file documented as of this encounter Visit Diagnoses Not on filedocumented in this encounter Additional Health Concerns Assessment Noted Time PHQ-9 Depression Total Score: 24 022 12:28 PM CDT documented as of this encounter Care Teams Film Booker Relationship Specialty Start Date End Date Jaguar Ruby MD [address] [place] [address] PCP - General 11/05/16 11/18/22 Jeny Gonzalez FNP [address] [place] [address] PCP - General Nurse Practitioner Family 11/19/22 Jaguar Ruby MD [address] [place] [address] 11/05/16 documented as of this encounter
== END 2024-07-10 16:40 | disposition home or self-care (01) ==
PROVIDERS: Emergency Provider Nurse Practitioner Family; PCP Nurse Practitioner Family
DX: J10.1 Influenza due to other identified influenza virus with other respiratory manifestations (principal); Z20.822 Contact with and (suspected) exposure to COVID-19; E78.00 Pure hypercholesterolemia, unspecified; K21.9 Gastro-esophageal reflux disease without esophagitis; E03.9 Hypothyroidism, unspecified; F41.9 Anxiety disorder, unspecified; F32.A Depression, unspecified; Z86.73 Personal history of transient ischemic attack (TIA), and cerebral infarction without residual deficits; Z86.16 Personal history of COVID-19
CPT/HCPCS: 87081; 87426; 87804; 87880; 99213; G0463

== ENCOUNTER 2024-07-24 16:26 | Emergency (ER) | payer SELFPAY ==
[2024-07-24 17:22] VITALS: BP 123/6; PULSE 77; RESP 18; TEMP 36.6; O2SAT 100
--- NOTE | 2024-07-24 17:27 | ED_ITS ---
HPI - Dental/Oral General Chief complaint: Dental/Oral Stated complaint: Dental Pain Time Seen by Provider: 07/24/24 17:27 Source: patient Mode of arrival: ambulatory History of Present Illness HPI Narrative: 49 old female presented for complaint left upper dental pain. Onset yesterday morning. She has taken 800 mg of ibuprofen several times today and used orajel rinse. States she feels the gums are swollen. Does not have a dentist. MD Complaint: tooth pain Related Data Home Medications ?Medication ?Instructions ?Recorded ?Confirmed ?Last Taken ?Type atorvastatin 20 mg tablet 20 mg PO DAILY 08/12/20 12/21/21 Unknown History citalopram 40 mg tablet 40 mg PO DAILY 08/12/20 12/21/21 Unknown History omeprazole 40 mg capsule,delayed 40 mg PO DAILY 08/12/20 12/21/21 Unknown History release sumatriptan succinate 100 mg tablet 100 mg PO PRN PRN Migraine Headache 08/12/20 12/21/21 Unknown History ibuprofen 800 mg tablet 800 mg PO TID 12/21/21 12/21/21 Unknown History levothyroxine 75 mcg tablet 1 tablet PO DAILY 12/21/21 12/21/21 Unknown History phentermine 37.5 mg tablet mg 03/19/23 Unknown History aripiprazole 2 mg tablet mg 07/10/24 Unknown History Allergies Allergy/AdvReac Type Severity Reaction Status Date / Time codeine AdvReac Intermediate Nausea and Verified 07/24/24 17:18 Vomiting Review of Systems Review of Systems: CONSTITUTIONAL: Denies body aches, fever, chills ENT: Denies rhinorrhea, congestion, sore throat, or otalgia. Reports dental pain CARDIOVASCULAR: Denies chest pain, palpitations RESPIRATORY: Denies cough or dyspnea. SKIN: Denies rash, itching, or wounds. MUSCULOSKELETAL: Denies myalgia. NEUROLOGIC: Denies headache, numbness, tingling, or weakness. [facility] Family History Family History Other Cerebrovascular accident Diabetes mellitus Family history of alcoholism Family history of arthritis Family history of cardiovascular disease Hypertension Social History Social History Alcohol intake: current Comments At time of signature, I have reviewed and agree with nursing past medical, surgical, social and family history unless otherwise noted. Please see nursing chart for further information. There is no relevant family history pertinent to the presenting complaint Exam Narrative: GENERAL: Appears in pain; no acute distress. HEAD: Normocephalic, atraumatic. EYES: EOMI. No redness or drainage. Conjunctivae normal. ENT: Dental pain location of #14,15 area. Minimal gum swelling or erythema. Tender with palpation. No drainage. Tooth is intact. Mucous membranes pink and moist. TMs normal bilaterally. Throat normal. no dysphagia, odynophagia, dysphonia, or dyspnea. No uvular deviation or soft palate edema. NECK: Normal AROM. No lymphadenopathy. no induration below mandible, no neck pain. SKIN: Warm, dry, no rash. Normal skin turgor. NEURO: No focal deficits. Alert and oriented x3. Gait steady. Course Course Emergency Course: Patient is aware of diagnosis, understands and agrees to treatment plan. Anticipatory guidance given. Patient agrees to follow-up as directed and is aware of reasons to seek care at the emergency department. Portions of this record may have been created with voice recognition software Level of Care: Express Care Visit Vital Signs Vital signs: Vital Signs Temperature 98 F 07/24/24 17:22 Pulse Rate 77 07/24/24 17:22 Respiratory Rate 18 07/24/24 17:22 Blood Pressure 123/6 L 07/24/24 17:22 Pulse Oximetry 100 07/24/24 17:22 Oxygen Delivery Room Air 07/24/24 17:22 Temperature 98 F 07/24/24 17:22 Pulse Rate 77 07/24/24 17:22 Respiratory Rate 18 07/24/24 17:22 Blood Pressure 123/6 L 07/24/24 17:22 Pulse Oximetry 100 07/24/24 17:22 Oxygen Delivery Room Air 07/24/24 17:22 MDM - Dental/Oral MDM Narrative Medical decision making narrative: Patients pain and complaint coupled with physical findings are consistent with dentalgia. There are no focal signs of space occupying lesions that are compromising to the airway; Patient is non-toxic appearing. The floor of the mouth is soft with no signs of Rory's Angina; Patient is without trismus or drooling and able to swallow secretions. Discussed physical exam findings. Advised supportive measures and signs/symptoms to go to the ER. Patient is felt appropriate for discharge home with dental follow up; dental list given. Differential Diagnosis Differential diagnosis: Likely gingival abscess, dental caries, toothache, dental abscess, fracture of tooth and aphthous ulcer Discharge Plan Discharge Clinical Impression: Toothache Patient Disposition: Home, Self-Care Condition: Stable Instructions: Antibiotic Form, Toothache (ED) Additional Instructions: Take antibiotic as directed May apply heat or ice to the face Gentle brushing and flossing. Rinse mouth with warm salt water at least 2 times a day. Alternate Tylenol and ibuprofen as needed for pain Follow-up with the dentist as soon as possible--see the list provided Go to the ER for worsening symptoms or concerns Patient Language: Macedonian Prescriptions: New amoxicillin-pot clavulanate 875-125 mg tablet 1 tablet PO Q12H 7 Days Qty: 14 0RF No Action levothyroxine 75 mcg tablet 1 tablet PO DAILY ibuprofen 800 mg tablet 800 mg PO TID aripiprazole 2 mg tablet atorvastatin 20 mg tablet 20 mg PO DAILY citalopram 40 mg tablet 40 mg PO DAILY sumatriptan succinate 100 mg tablet 100 mg PO PRN PRN (Reason: Migraine Headache) omeprazole 40 mg capsule,delayed release(DR/EC) 40 mg PO DAILY phentermine 37.5 mg tablet Follow-up/Referrals: JAQUELINE,YASSINE NO [Primary Care Provider] - Stand Alone Forms: Work/School Release IP
== END 2024-07-24 17:35 | disposition home or self-care (01) ==
PROVIDERS: Emergency Provider Nurse Practitioner Family; PCP Nurse Practitioner Family
DX: K08.89 Other specified disorders of teeth and supporting structures (principal); E78.00 Pure hypercholesterolemia, unspecified; K21.9 Gastro-esophageal reflux disease without esophagitis; F41.9 Anxiety disorder, unspecified; F32.A Depression, unspecified; Z86.16 Personal history of COVID-19; Z86.718 Personal history of other venous thrombosis and embolism
CPT/HCPCS: 99213; G0463